=== PATIENT | female | born 1985 | race Caucasian/White ===

== ENCOUNTER → 2020-06-30 12:00 | Outpatient (BNVA) | payer OTHER, SELFPAY | PROVIDERS: Family Provider Family Medicine; Visit Provider Family Medicine | DX: Z20.828 Contact with and (suspected) exposure to other viral communicable diseases (principal) | CPT/HCPCS: 87635 ==

== ENCOUNTER 2023-10-25 06:30 | Outpatient (CLI) | payer OTHER, SELFPAY ==
--- NOTE | 2023-10-25 07:00 | US_ITS ---
WS: [id number] US transvaginal [id number] HISTORY: IRREG PERIODS COMPARISON: 11/28/2018 Uterus: 8.6 cm x 5.4 cm x 4.2 cm. Normal size anteverted uterus. No fibroid or mass. Endometrium: 0.8 cm. Normal size endometrium. There is a mildly hyperechoic nodule in the central end ometrial canal measuring 1.1 x 0.8 x 0.4 cm. There is slight increased vascularity. Right ovary: 3.5 cm x 3.1 cm x 2.7 cm. Minimally complex follicle RIGHT ovary measuring 1.6 x 2.2 x 2 .0 cm. The wall is slightly crenulated suggesting this may be ready to collapse. Left ovary: 2.4 cm x 2.5 cm x 1.5 cm. Multiple small peripheral follicles. No free fluid in the cul-de-sac. IMPRESSION: 1. Hypoechoic ovoid mass in the central endometrial canal measuring 1.1 x 0.8 x 0.4 cm. Highly suspi cious for a polyp. Consider evaluation by [employer] for evaluation. 2. Bilateral ovarian follicles.
== END 2023-10-25 06:31 | disposition home or self-care (01) ==
LOC: RAD 06:32
PROVIDERS: Family Provider Family Medicine; Visit Provider Internal Medicine
DX: N92.6 Irregular menstruation, unspecified (principal); N85.9 Noninflammatory disorder of uterus, unspecified
CPT/HCPCS: 76830

== ENCOUNTER 2024-03-24 11:47 | Day surgery (SDC) | payer OTHER, SELFPAY ==
[2024-03-23 10:14] LABS: Charge for UA Resulting for Rev
[2024-03-23 10:20] LABS: Bilirubin Urine Negative (Negative); Blood Urine Negative (Negative); Glucose Urine UA Negative (Normal); Ketones Urine Negative (Negative); Leukocyte Esterase Urine Negative (Negative); Nitrate Urine Negative (Negative); Protein Urine Negative (Negative); Specific Gravity, Urine 1.011 (1.005-1.030); Urine Appearance Clear (CLEAR); Urine Color Yellow (Yellow); Urobilinogen Urine 0.2 mg/dL (Negative); pH Urine 5.5 (5-7)
[2024-03-23 10:25] LABS: Basophils % 0.5 %; Eosinophils # 0.1 10^3/uL (0.0-0.8); Eosinophils % 1.1 %; Hematocrit 43.1 % (36-47); Lymphocytes % 37.3 %; Mean Corpuscular HGB Conc 33.4 g/dL (30-55); Mean Corpuscular Hemoglobin 30.8 pg (27-33); Mean Corpuscular Volume 92.1 fl (85-98); Mean Platelet Volume 9.6 fL (7.4-10.4); Monocytes # 0.5 10^3/uL (0.2-0.9); Monocytes % 5.6 %; Neutrophils # 4.51 10^3/uL (1.8-7.7); Neutrophils % 55.4 %; Nucleated Red Blood Cells % 0 %; Platelet Count 380 10^3/cmm (157-399); Red Blood Count 4.68 10^6/uL (3.85-5.65); Red Cell Distribution Width 13.6 % (12.1-15.1); White Blood Count 8.15 10^3/uL (3.29-11.43)
[2024-03-23 10:50] LABS: Alanine Aminotransferase 9 U/L (0-33); Albumin Level 4.6 g/dL (3.5-5.2); Alkaline Phosphatase 53 U/L (35-105); Anion Gap 16.7 (5-19); Aspartate Amino Transferase 11 U/L (0-32); Blood Urea Nitrogen 16 mg/dL (6-20); Calcium 9.7 mg/dL (8.5-10.5); Carbon Dioxide 23 mmol/L (22-29); Chloride 101 mmol/L (98-107); Globulin 2.6 g/dL (1.3-4.6); Glomerular Filtration Rate 138.1 mL/min (90-130); Glucose 89 mg/dL (65-115); Osmolality Calculated 283 mOsm/kg (285-295); Potassium 4.7 mmol/L (3.5-5.1); Sodium 136 mmol/L (136-145); Total Bilirubin 0.3 mg/dL (0.15-1.2); Total Protein 7.2 g/dL (6.6-8.7)
--- NOTE | 2024-03-23 12:11 | ANES.PREANE2 ---
Pre-Anesthetic Assessment Height/Weight: Height 1.57 m Operation Date: 03/24/24 13:35 Proposed Procedures p Hysteroscopy w/ Myosure 95954, 61789, N93.9, N84.0(Not Applicable) - Santo Correia MD s Dilation And Curettage (D&C)(Not Applicable) - Santo Correia MD Familial anesthetic complications: none Was Beta Cezar taken within 24 hours: N/A Was Clonidine taken within 24 hours: N/A Social No alcohol and No tobacco Exam alert, oriented x 3, clear to auscultation bilaterally and regular rate & rhythm Airway Submandibular: within normal limits Cervical ROM: within normal limits Mallampati: Class II Dentition: full Musc/skel Lower Back Pain and Osteoarthritis/DJD Neuropsych chronic opioid Anesthetic Plan ASA status: 2 Anesthesia: General Medications/Allergies Home Medications Medication Instructions Recorded Confirmed Last Taken Type hydrocodone 5 mg-acetaminophen 300 1 tab PO BID PRN Back Pain 03/02/24 03/23/24 03/21/24 History mg tablet methocarbamol 500 mg tablet 500 mg PO TID PRN Muscle Spasm 03/02/24 03/23/24 03/21/24 History norgestimate 0.25 mg-ethinyl 1 tab PO DAILY 03/02/24 03/23/24 03/23/24 History estradiol 35 mcg tablet (Sprintec (28)) Allergies Allergy/AdvReac Type Severity Reaction Status Date / Time No Known Allergies Allergy Unverified 03/23/24 08:03 [facility] Anesthesia Family History Denies family history of Colon cancer Ovarian cancer Prostate cancer Diabetes Heart disease Hyperlipidemia Breast cancer Hypertension Uterine cancer Thyroid disease Stroke Social History Smoking and tobacco/nicotine status: never used tobacco/nicotine Female Reproductive History Date of last menstrual period: 02/08/24 Data Anesthesia 03/23/24 10:15 03/23/24 10:15 Short CBC 03/23/24 Range/Units 10:15 WBC 8.15 (3.29-11.43) 10^3/uL Hgb 14.40 (11.27-16.99) g/dL Hct 43.1 (36-47) % MCV 92.1 (85-98) fl Plt Count 380 (157-399) 10^3/cmm Neut % (Auto) 55.4 % Neut # (Auto) 4.51 (1.8-7.7) 10^3/uL BMP 03/23/24 10:15 Sodium 136 Potassium 4.7 Chloride 101 Carbon Dioxide 23 BUN 16 Creatinine 0.5 Glucose 89 Calcium 9.7 Liver Function 03/23/24 Range/Units 10:15 Total Bilirubin 0.3 (0.15-1.2) mg/dL AST 11 (0-32) U/L ALT 9 (0-33) U/L Alkaline Phosphatase 53 (35-105) U/L Albumin 4.6 (3.5-5.2) g/dL Urine 03/23/24 Range/Units 10:05 Urine Color Yellow (Yellow) Urine Appearance Clear (CLEAR) Urine pH 5.5 (5-7) Ur Specific [place] 1.011 (1.005-1.030) Urine Protein Negative (Negative) Urine Glucose (UA) Negative (Normal) Urine Ketones Negative (Negative) Urine Nitrate Negative (Negative) Urine Bilirubin Negative (Negative) Ur Leukocyte Esterase Negative (Negative) Cardiac Studies: No Data to Display
[2024-03-24] VITALS (11 sets, daily range): BP systolic 92–123; BP diastolic 60–88; PULSE 69–86; RESP 10–18; TEMP 36.6–37.1; O2SAT 97–100; BMI 29.6
--- NOTE | 2024-03-24 12:10 | W.PM.OPSUD ---
Surgery/Procedure H&P Update DATE OF PROCEDURE: March 24, 2024 DATE H&P PERFORMED: 03/23/24 H&P UPDATE INFORMATION: I have reviewed H&P completed within last 30 days, I have examined patient prior to procedure and No changes to prior documentation PREOP DIAGNOSIS: abnormal uterine bleeding, Endometrial polyp PLANNED PROCEDURE: Operation Date: 03/24/24 13:35 Proposed Procedures p Hysteroscopy w/ Myosure 96281, 33925, N93.9, N84.0(Not Applicable) - Santo Correia MD s Dilation And Curettage (D&C)(Not Applicable) - Santo Correia MD
--- NOTE | 2024-03-24 12:40 | P.ANESUD_ITS ---
Pre-Anesthetic Update Pre-Anesthetic Assessment: Date of Surgery/Procedure: 03/24/24 Preop Lucila gnosis: abnormal uterine bleeding, Endometrial polyp Proposed Procedure: Operation Date: 03/24/24 13:35 Proposed Procedures p Hysteroscopy w/ Myosure 48993, 60022, N93.9, N84.0(Not Applicable) - Santo Correia MD s Dilation And Curettage (D&C)(Not Applicable) - Santo Correia MD Any changes to Pre-Anesthetic Assessment?: No Last Intake: Intake Last Liquid Date 03/24/24 Last Liquid Time 04:30 Last Solid Date 03/23/24 Last Solid Time 18:00 Labs Last 48hrs: Short CBC 03/23/24 Range/Units 10:15 WBC 8.15 (3.29-11.43) 10^ 3/uL Hgb 14.40 (11.27-16.99) g/ dL Hct 43.1 (36-47) % MCV 92.1 (85-98) fl Plt Count 380 (157-399) 10^3/c mm Neut % (Auto) 55.4 % Neut # (Auto) 4.51 (1.8-7.7) 10^3/u L BMP 03/23/24 10:15 Sodium 136 Potassium 4.7 Chloride 101 Carbon Dioxide 23 BUN 16 Creatinine 0.5 Glucose 89 Calcium 9.7 Liver Function 03/23/24 Range/Units 10:15 Total Bilirubin 0.3 (0.15-1.2) mg/dL AST 11 (0-32) U/L ALT 9 (0-33) U/L Alkaline Phosphata se 53 (35-105) U/L Albumin 4.6 (3.5-5.2) g/dL Urine 03/23/24 Range/Units 10:05 Urine Color Yellow (Yellow) Urine Appearance Clear (CLEAR) Urine pH 5.5 (5-7) Ur Specific Gravit y 1.011 (1.005-1.030) Urine Protein Negative (Negative) Urine Glucose (UA) Negative (Normal) Urine Ketones Negative (Negative) Urine Nitrate Negative (Negative) Urine Bilirubin Negative (Negative) Ur Leukocyte Lucretia ase Negative (Negative) Vitals: Temperature 98.7 F 03/24/24 12:15 Temperature Source Temporal Artery S can 03/24/24 12:15 Pulse Rate 71 03/24/24 12:15 Respiratory Rate 18 03/24/24 12:15 Blood Pressure 117/73 03/24/24 12:15 Blood Pressure Jeanie n 87 03/24/24 12:15 Pulse Oximetry 98 03/24/24 12:15 Oxygen Delivery Me thod Room Air 03/24/24 12:18 Exam: Pre-Anes Outpt Exam: alert, oriented x 3, clear to auscultation bilaterally and regular rate & rhythm Cardiac Studies: No Data to Display
[2024-03-24] MEDS: sodium chloride 0.9% 500 ML IV (12:48)
[2024-03-24] MEDS: scopolamine 1.5 Patch 1 PATCH TRANSDERMA (12:54)
[2024-03-24] MEDS: sodium chloride 0.9% 1,000 ML 30 ML IV (13:20)
[2024-03-24] MEDS: fentaNYL 50 mcg/mL INJ 2mL IVP (14:19)
[2024-03-24] MEDS: lidocaine-epi 2% PF 1:200,000 20 mL SDV XX (15:27)
--- NOTE | 2024-03-24 15:34 | PM.OP ---
Operative Report Date of procedure: March 24, 2024 Pre-op diagnosis: Abnormal uterine bleeding Endometrial polyp Post-op diagnosis: same Procedure done: Hysteroscopy Hysteroscopic polypectomy Dilation and curettage via MyoSure Specimens removed/disposition: Endometrial curettings with polyp Surgeon: Santo Correia MD Estimated blood loss (mL): 5 IV fluids (mL): 650 Complications: None Findings: Endometrial polyp Procedure: After informed consent, the risks included but were not limited to bleeding, infection, injury to internal organs. The patient was counseled on a possible laparotomy and on the potential need for hysterectomy. The patient expressed understanding of the risks involved, all questions were answered, and the patient consented to the procedure. The patient was taken to the operating room where general anesthesia was administered. She was placed in the dorsal lithotomy position and prepped and draped in sterile fashion. A time out procedure was performed. The patient was examined under anesthesia and found to have a normal uterus with normal adnexa. A sterile weight speculum was placed in the vagina. The uterus was then gently sounded to 7 cm, and the cervix was dilated. The 0 degrees MyoSure hysteroscope was advanced gently to the uterine fundus while visualizing the monitor. Survey of the uterine cavity showed: An endometrial polyp the left posterior wall, the fundus shows normal proliferative endometrium; left ostium was visualized, and lateral wall with proliferative endometrium; right ostium visualized, and lateral wall with proliferative endometrium; anterior and posterior ruelas are with proliferative endometrium; endocervical canal is normal. The MyoSure device was advanced and the direct visualization the Polyp and endometrium was morcellated without complication. At the end of morcellation the fluid deficit was 75 mL and was estimated at approximately 20 mL were on the floor. There was minimal bleeding noted and the tenaculum removed with goad hemostasis noted. The patient tolerated the procedure well. The patient was taken to the recovery area in stable condition.
--- NOTE | 2024-03-24 16:06 | ANE.PACU2 ---
Inpatient post-anesthesia follow up: Airway intact: Yes Vital signs: Temperature 98.3 F Pulse Rate 76 Respiratory Rate 14 Blood Pressure 102/71 Pulse Oximetry 97 Oxygen Delivery Me thod Room Air Oxygen Flow Rate Fraction of Inspir ed Oxygen Hydration adequate: Yes Nausea and vomiting: No Pain level: 2 Mental status: Baseline
[2024-03-26 12:09] LABS: OR HCG Qualitative Urine Negative (Negative)
== END 2024-03-24 17:00 | disposition home or self-care (01) ==
PROVIDERS: PCP Internal Medicine; Visit Provider Obstetrics & Gynecology
PROC: 0UDB8ZZ Extraction of Endometrium, Via Natural or Artificial Opening Endoscopic (ICD-10-PCS; CPT 58558; principal; 2024-03-24 13:25)
PROC: (CPT 58120; 2024-03-24 13:25)
DX: N93.9 Abnormal uterine and vaginal bleeding, unspecified (principal)
CPT/HCPCS: 58558; 36415; 80053; 81003; 81015; 81025; 85025; 86850; 86900; 88305; J1100; J1885; J2250; J2405; J2704; J3010; J7030; J7040

== ENCOUNTER → 2024-04-21 07:59 | Outpatient (BNVA) | payer OTHER, SELFPAY | PROVIDERS: PCP Internal Medicine; Visit Provider Obstetrics & Gynecology | DX: N93.9 Abnormal uterine and vaginal bleeding, unspecified (principal); D25.9 Leiomyoma of uterus, unspecified | CPT/HCPCS: 76830 ==